=== PATIENT | male | born 1995 ===

== ENCOUNTER 2020-11-26 04:35 | Emergency (ER) | payer OTHER ==
[2020-11-26 04:57] LABS: BASOPHIL 0.5 % (0-2); EOSINOPHIL 0.4 % (0-5); HCT 56.5 % (42.0-52.0); HGB 18.4 g/dl (13.2-18.0); LYMPHOCYTE 9.4 % (15-48); MCHC 32.6 g/dL (32.0-36.0); MONOCYTE 3.6 % (0-12); MPV 9.5 fL (6.0-9.5); NEUTROPHIL 84.5 % (41-80); NRBC 0; PLT 264 K/uL (150-400); RBC 6.57 M/uL (4.70-6.00); RDW 14.5 % (11.5-14.0); WBC 14.3 K/uL (4.0-10.5)
[2020-11-26 05:16] LABS: ALBUMIN 4.7 g/dL (3.4-5.0); BILIRUBIN - TOTAL 0.4 mg/dL (0.2-1.0); BUN/CREAT RATIO (CALC) 13.9 RATIO; CREATININE 1.15 mg/dL (0.67-1.17); GLOBULIN (CALCULATION) 4.5 g/dL; POTASSIUM 4.2 mmol/L (3.5-5.1); TOTAL PROTEIN 9.2 g/dL (6.4-8.2)
== END 2020-11-26 08:41 | disposition other institution (70) ==
LOC: FER 04:35
PROVIDERS: Emergency Medicine Emergency Medical Services
DX: S22.32XA Fracture of one rib, left side, initial encounter for closed fracture (principal); S22.20XA Unspecified fracture of sternum, initial encounter for closed fracture; S32.059A Unspecified fracture of fifth lumbar vertebra, initial encounter for closed fracture; S32.10XA Unspecified fracture of sacrum, initial encounter for closed fracture; S40.012A Contusion of left shoulder, initial encounter; S80.211A Abrasion, right knee, initial encounter; S70.212A Abrasion, left hip, initial encounter; S70.211A Abrasion, right hip, initial encounter; F17.290 Nicotine dependence, other tobacco product, uncomplicated; J45.909 Unspecified asthma, uncomplicated; V47.5XXA Car driver injured in collision with fixed or stationary object in traffic accident, initial encounter; Y92.410 Unspecified street and highway as the place of occurrence of the external cause
CPT/HCPCS: 36415; 70450; 71260; 72125; 72131; 73020; 80053; 83605; 83690; 84484; 85025; 90471; 90715; 93005; J1170; J2270; J2405; J3010; J7030